=== PATIENT | male | born 1985 | race Hispanic/Latino ===

== ENCOUNTER 2020-06-01 15:20 | Emergency (ER) | payer OTHER ==
[2020-06-01] MEDS ORDERED: ACETAMINOPHEN 325 MG TAB As Ordered ONE (16:38)
[2020-06-01] MEDS ORDERED: IBUPROFEN 800 MG TAB ONE (16:42)
[2020-06-01] MEDS ORDERED: IBUPROFEN 800 MG TAB As Ordered ONE (16:42)
== END 2020-06-01 17:09 | disposition home or self-care (01) ==
LOC: M ED 15:20
DX: T23.201A Burn of second degree of right hand, unspecified site, initial encounter (principal); X15.8XXA Contact with other hot household appliances, initial encounter; Y92.099 Unspecified place in other non-institutional residence as the place of occurrence of the external cause; Y93.9 Activity, unspecified; Y99.9 Unspecified external cause status